=== PATIENT | male | born 1965 | race Caucasian/White ===

== ENCOUNTER 2017-08-05 11:56 | Emergency (ER) | payer MEDICAID ==
[2017-08-05 12:02] VITALS: BP 99/53; PULSE 53; RESP 16; TEMP 97.7; O2SAT 96
--- NOTE | 2017-08-05 12:34 | EDPHY ---
H & P Time Seen by Provider: 08/05/17 12:26 HPI/ROS: CHIEF COMPLAINT: laceration left hand HISTORY OF PRESENT ILLNESS: 52-year-old [id number] male with up-to- date tetanus arrives via private vehicle pain acute laceration to his left hand overlying the 1st metacarpal dorsal aspect when he was cutting linoleum with a razor, sustained accidental laceration. No paresthesia. No sensory or motor deficit. PHYSICAL EXAM (Prior to examination, patient consented to physical exam, hands were washed and my usual and customary physical exam procedures followed) 1) GENERAL: Well-developed, well-nourished, alert and oriented. Appears to be in no acute distress. 2) HEAD: Normocephalic 3) HEENT: sclera anicteric 4) LUNGS: Breathing comfortably. 5) SKIN: left hand dorsal aspect overlying the 1st metacarpal 2 cm flap laceration. Superficial. 6) MUSCULOSKELETAL: abduction abduction flexion extension intact no deficits. Specific attention paid to the extensor pollicis longus and brevis and no deficits appreciated 7) NEUROLOGIC: Full sensation two-point discrimination intact distally Smoking Status: Never smoked Constitutional: Initial Vital Signs Temperature (C) 36.5 C 08/05/17 11:59 Heart Rate 53 L 08/05/17 11:59 Respiratory Rate 16 08/05/17 11:59 Blood Pressure 99/53 L 08/05/17 11:59 O2 Sat (%) 96 08/05/17 11:59 O2 Delivery Mode Room Air Allergies/Adverse Reactions: No Known Allergies Allergy (Unverified 08/05/17 11:59) Home Medications: Medication Instructions Recorded NK [No Known Home Meds] 08/05/17 MDM/Departure - MDM Procedures: Procedure: Laceration repair. I explained the indications, risks and benefits for both laceration repair and anesthetic administration. Verbal consent was obtained from the patient . The laceration on the left hand was anesthetized using is with epinephrine . After anesthetic administered the patient was observed for a period of time and had no apparent adverse effects. The wound was cleaned, prepped, draped in normal sterile fashion and explored to its base. No foreign body seen, no foreign bodies palpated. There were no deep structures involved. No tendon injury was identified. The wound was repaired with 4 simple interrupted 5 O Prolene suture. The wound repair was simple. The procedure was performed by myself. Patient has been informed that scarring will occur, although efforts have been made to minimize this. ED Course/Re-evaluation: Care of patient under supervision of secondary supervising physician Dr Cline . - Depart Disposition: Home, Routine, Self-Care Clinical Impression: Laceration of left hand Qualifiers: Encounter type: initial encounter Foreign body presence: without foreign body Qualified Code(s): S61.412A - Laceration without foreign body of left hand, initial encounter Condition: Good Instructions: Care For Your Stitches (ED), Laceration (ED) Additional Instructions: Return to the ER if you develop redness, swelling, discharge, warmth to the wound, red streaks going up your arm , or any other symptoms that concern you. Referrals: Return, to the ER in 10 days for suture removal [Other] - 08/15/17
== END 2017-08-05 14:19 | disposition home or self-care (01) ==
PROC: 0HQGXZZ Repair Left Hand Skin, External Approach (ICD-10-PCS; principal; 2017-08-05)
DX: S61.412A Laceration without foreign body of left hand, initial encounter (principal); W26.8XXA Contact with other sharp object(s), not elsewhere classified, initial encounter; Y99.8 Other external cause status

== ENCOUNTER 2017-10-10 08:24 | Emergency (ER) | payer MEDICAID ==
--- NOTE | 2017-10-10 08:37 | EDPHY ---
H & P Stated Complaint: Vertigo Time Seen by Provider: 10/10/17 08:36 HPI/ROS: CHIEF COMPLAINT: Vertigo HISTORY OF PRESENT ILLNESS: The patient presents the ED with symptoms of acute vertigo. The patient's symptoms began this morning after waking up. He describes classic peripheral vertigo with vertigo which is worsened with positional changes and movement of his head to the left. The patient's past medical history is unremarkable. He did recently undergo extraction of a tooth. He denies any fever, acute facial pain, neck stiffness, numbness or weakness in the arms or legs or ataxia. The patient has had no history of trauma or cervical manipulation. The patient denies any neck pain. REVIEW OF SYSTEMS: A comprehensive 10 point review of systems is otherwise negative aside from elements mentioned in the history of present illness. Source: Patient Exam Limitations: No limitations - Personal History Current Tetanus/Diphtheria Vaccine: Yes Current Tetanus Diphtheria and Acellular Pertussis (TDAP): Yes - Medical/Surgical History Hx Asthma: No Hx Chronic Respiratory Disease: No Hx Diabetes: No Hx Cardiac Disease: No Hx Renal Disease: No Hx Cirrhosis: No Hx Alcoholism: No Hx HIV/AIDS: No Hx Splenectomy or Spleen Trauma: No Other PMH: denies - Social History Smoking Status: Never smoked - Physical Exam Exam: General Appearance: Alert, no distress Eyes: Pupils equal and round no pallor or injection ENT, Mouth: Mucous membranes moist Respiratory: There are no retractions, lungs are clear to auscultation Cardiovascular: Regular rate and rhythm Gastrointestinal: Abdomen is soft and nontender, no masses, bowel sounds normal Neurological: Alert and oriented x4, 5/5 strength noted all 4 extremities, cranial nerves 2-12 intact, patient does exhibit worse on a was stagnant primarily with left axial rotation of the head. Skin: Warm and dry, no rashes Musculoskeletal: Neck is supple nontender Extremities: symmetrical, full range of motion Constitutional: Initial Vital Signs Temperature (C) 36.5 C 10/10/17 08:26 Heart Rate 55 L 10/10/17 08:26 Respiratory Rate 18 10/10/17 08:26 Blood Pressure 109/69 10/10/17 08:26 O2 Sat (%) 96 10/10/17 08:26 O2 Delivery Mode Room Air Allergies/Adverse Reactions: No Known Allergies Allergy (Unverified 08/05/17 11:59) Home Medications: Medication Instructions Recorded Diazepam [Valium 10 MG (RX)] 10 mg PO HS PRN #10 tab 10/10/17 Meclizine HCl [Meclizine HCl 25 mg 25 mg PO BID PRN #20 tab 10/10/17 (RX,OTC)] Ondansetron Odt [Zofran Odt] 4 mg PO Q4PRN PRN #20 tab 10/10/17 Medical Decision Making ED Course/Re-evaluation: The patient presents to the ED with symptoms consistent with peripheral vertigo. The patient received oral Zofran and 25 mg of meclizine. The patient' s neurologic examination is normal. He has no historical or physical exam findings suggestive of dissection. He has nothing to suggest subarachnoid hemorrhage or a [employer] abnormality on his exam. The patient does have a positive Realitos-Hallpike test with leftward gaze. He did undergo the Mary maneuver in the ED with some improvement of his symptoms. The patient will be discharged home with prescriptions for meclizine, Zofran and Valium. He is given customary aftercare instructions and return precautions. Differential Diagnosis: Differential diagnosis considered includes peripheral vertigo, central vertigo - Data Points Medications Given: Discontinued Medications Meclizine HCl (Meclizine Hcl) 25 mg PO EDNOW ONE Stop: 10/10/17 08:47 Last Admin: 10/10/17 09:19 Dose: 25 mg Ondansetron HCl (Zofran Odt) 4 mg PO EDNOW ONE Stop: 10/10/17 08:48 Last Admin: 10/10/17 09:19 Dose: 4 mg Departure - Departure Disposition: Home, Routine, Self-Care Clinical Impression: Benign positional vertigo Condition: Good Instructions: Vertigo (DC) Additional Instructions: 1. Meclizine as directed for dizziness. 2. Zofran as needed for nausea. 3. Valium it as needed at night for management of your symptoms. 4. Please return to the ED for any worsening symptoms, numbness, weakness, severe headache, neck pain or other concerns. 5. You have been given the number of our on-call Ear Nose Throat specialist for any ongoing symptoms. 6. Please continue to do the Mary maneuver as demonstrated in the emergency department for any ongoing symptoms of vertigo. Referrals: Juno Sims MD [Medical Doctor] - As per Instructions Prescriptions: Diazepam [Valium 10 MG (RX)] 10 mg PO HS PRN #10 tab PRN Reason: for dizzyness Meclizine HCl [Meclizine HCl 25 mg (RX,OTC)] 25 mg PO BID PRN #20 tab PRN Reason: for dizzyness Ondansetron Odt [Zofran Odt] 4 mg PO Q4PRN PRN #20 tab PRN Reason: For Nausea
[2017-10-10] MEDS ORDERED: MECLIZINE HCL 25 MG TAB PO ONE (08:46)
[2017-10-10] MEDS ORDERED: ONDANSETRON DISINTEGRATING 4 MG TAB PO ONE (08:47)
[2017-10-10 10:09] VITALS: BP 136/82; PULSE 82; RESP 16; TEMP 98.5; O2SAT 98
== END 2017-10-10 10:07 | disposition home or self-care (01) ==
DX: H81.10 Benign paroxysmal vertigo, unspecified ear (principal)